=== PATIENT | female | born 1985 | race Caucasian/White ===

== ENCOUNTER 2021-04-26 23:29 | Observation (INO) | payer OTHER ==
[~2021-04-26] VITALS: Ht 170.2 cm; Wt 90.7 kg
[2021-04-27] MEDS ORDERED: PREN1TAB23 PO (00:11)
[2021-04-27] MEDS ORDERED: OMEP20CA14 PO (00:11)
== END 2021-04-27 01:12 | disposition home or self-care (01) ==
LOC: 8 EST LDRP 23:29
PROVIDERS: ADMIT Obstetrics & Gynecology; ATTEND Obstetrics & Gynecology
DX: O26.893 Other specified pregnancy related conditions, third trimester (principal); R10.11 Right upper quadrant pain; O09.523 Supervision of elderly multigravida, third trimester; Z3A.36 36 weeks gestation of pregnancy
CPT/HCPCS: 59025; 99281; G0378

== ENCOUNTER 2021-11-23 17:26 | Emergency (ER) | payer OTHER ==
[~2021-11-23] VITALS: Ht 170.2 cm; Wt 79.0 kg
[~2021-11-23 17:26] MED LIST: OMEP20CA14 PO; PREN1TAB23 PO
[2021-11-23] MEDS ORDERED: MAGNESIUM/ALUMINUM HYDROXIDE/SIMETHICONE 30ML UDC PO STA (18:17)
[2021-11-23] MEDS ORDERED: ONDANSETRON HCL 4MG/2ML INJ IV STA (18:17)
[2021-11-23] MEDS ORDERED: PANTOPRAZOLE SODIUM 40 MG/VIAL IV STA (18:17)
[2021-11-23] MEDS ORDERED: SODIUM CHLORIDE 0.9% 1,000 ML IV ONE (18:30)
[2021-11-23] MEDS ORDERED: KETOROLAC 15MG/ML VIAL IV ONE (19:00)
[2021-11-23 19:27] LABS: BASOPHILS % 0.2 % (0.0-2.0); EOSINOPHILS % 0.7 % (0.0-5.0); HEMATOCRIT. 42.3 % (36.0-48.0); HEMOGLOBIN. 14.3 g/dL (12.0-16.0); LYMPHOCYTES % 11.7 % (20.0-50.0); MEAN CORPUSCULAR HEMOGLOBIN 30.4 pg (28.0-32.0); MEAN CORPUSCULAR VOLUME 89.8 fL (81.0-99.0); MEAN PLATELET VOLUME 10.4 fl (7.4-10.4); MONOCYTES % 9.2 % (2.0-8.0); NEUTROPHILS % 78.2 % (40.0-76.0); PLATELET 210 x1000/uL (130-400); RED BLOOD CELL COUNT 4.71 mill/uL (4.2-5.4); RED CELL DISTRIBUTION WIDTH 13.7 % (11.6-14.6)
[2021-11-23 19:29] LABS: CHLORIDE 107 mEq/L (98-107)
[2021-11-23 19:36] LABS: ETHANOL BLOOD < 10 mg/dL
[2021-11-23 19:40] LABS: CLARITY URINE CLEAR (CLEAR); COLOR URINE YELLOW (YELLOW); KETONES URINE NEGATIVE (NEGATIVE); LEUKOCYTE ESTERASE URINE 1+ (NEGATIVE); NITRITE URINE NEGATIVE (NEGATIVE); OCCULT BLOOD URINE 3+ (NEGATIVE); PROTEIN URINE NEGATIVE (NEGATIVE); SPECIFIC GRAVITY URINE 1.014 (1.005-1.030); UROBILINOGEN URINE 0.2 E.U./dL (0.2-1.0)
[2021-11-23 19:57] LABS: *AMPHETAMINES SCREEN URINE NEGATIVE (NEGATIVE); *BARBITURATES SCREEN URINE NEGATIVE (NEGATIVE); *BENZODIAZEPINES SCREEN URINE NEGATIVE (NEGATIVE); *COCAINE SCREEN URINE NEGATIVE (NEGATIVE); CANNABINOID URINE SCREEN NEGATIVE (NEGATIVE); METHADONE URINE SCREEN NEGATIVE (NEGATIVE); OPIATES URINE SCREEN NEGATIVE (NEGATIVE); PHENCYCLIDINE URINE SCREEN NEGATIVE (NEGATIVE)
[2021-11-23 20:14] LABS: HCG SCREEN NEGATIVE
[2021-11-23 20:19] VITALS: BP 112/73
[2021-11-23] MEDS ORDERED: IBUP-2029 MT (20:20)
[2021-11-23] MEDS ORDERED: DICY10CA88 MT (20:20)
[2021-11-23] MEDS ORDERED: ONDA4TAB5 MT (20:20)
[2021-11-23] MEDS ORDERED: DICYCLOMINE HCL 10MG CAPSULE PO ONE (20:30)
== END 2021-11-23 21:07 | disposition home or self-care (01) ==
LOC: ER 17:26
DX: K52.9 Noninfective gastroenteritis and colitis, unspecified (principal); R11.2 Nausea with vomiting, unspecified; Z79.899 Other long term (current) drug therapy; Z88.0 Allergy status to penicillin
CPT/HCPCS: 36415; 76700; 80053; 80305; 80320; 81003; 81025; 83605; 83690; 84703; 85025; 96361; 96374; 96375; 99284; C9113; J1885; J2405; J7030; G0480

== ENCOUNTER 2022-11-03 15:22 | Emergency (ER) | payer OTHER ==
[~2022-11-03] VITALS: Ht 167.6 cm; Wt 91.0 kg
[~2022-11-03 15:22] MED LIST changes: +DICY10CA88 MT; +IBUP-2029 MT; +ONDA4TAB5 MT
[2022-11-03 19:39] LABS: BASOPHILS % 0.4 % (0.0-2.0); EOSINOPHILS % 0.6 % (0.0-5.0); HEMOGLOBIN. 14.9 g/dL (12.0-16.0); LYMPHOCYTES % 23.8 % (20.0-50.0); MEAN CORPUSCULAR HEMOGLOBIN 31.6 pg (28.0-32.0); MEAN CORPUSCULAR VOLUME 93.2 fL (81.0-99.0); MEAN PLATELET VOLUME 10.4 fl (7.4-10.4); MONOCYTES % 11.1 % (2.0-8.0); NEUTROPHILS % 64.1 % (40.0-76.0); PLATELET 189 x1000/uL (130-400); RED BLOOD CELL COUNT 4.72 mill/uL (4.2-5.4); RED CELL DISTRIBUTION WIDTH 13.6 % (11.6-14.6)
[2022-11-03 19:47] LABS: CHLORIDE 108 mEq/L (98-107)
[2022-11-04 00:48] VITALS: BP 108/74
== END 2022-11-04 00:50 | disposition home or self-care (01) ==
LOC: ER 15:22
DX: K52.9 Noninfective gastroenteritis and colitis, unspecified (principal); Z88.0 Allergy status to penicillin
CPT/HCPCS: 36415; 76705; 80053; 85025; 99284

== ENCOUNTER 2025-03-09 12:36 | Emergency (ER) | payer OTHER ==
[~2025-03-09] VITALS: Ht 170.2 cm; Wt 84.0 kg
[~2025-03-09 12:36] MED LIST changes: +DICY-18 MT; -DICY10CA88 MT
[2025-03-09 12:40] VITALS: O2SAT 98
[2025-03-09] MEDS: SODIUM CHLORIDE 0.9% 1,000 ML IV ONE (13:45)
[2025-03-09] MEDS: LORAZEPAM 1MG TABLET PO ONE (14:10)
[2025-03-09 14:47] LABS: BASOPHILS % 0.4 % (0.0-2.0); EOSINOPHILS % 1.1 % (0.0-5.0); HEMATOCRIT. 39.3 % (36.0-48.0); HEMOGLOBIN. 13.1 g/dL (12.0-16.0); LYMPHOCYTES % 24.8 % (20.0-50.0); MEAN PLATELET VOLUME 10.2 fl (7.4-10.4); MONOCYTES % 9.6 % (2.0-8.0); NEUTROPHILS % 64.1 % (40.0-76.0); PLATELET 207 x1000/uL (130-400); RED BLOOD CELL COUNT 4.27 mill/uL (4.2-5.4); RED CELL DISTRIBUTION WIDTH 13.6 % (11.6-14.6)
[2025-03-09 14:59] LABS: INR 1.0
[2025-03-09 15:08] LABS: CREATININE 0.7 mg/dL (0.6-1.0); TROPONIN I HIGH SENSITIVITY < 4 ng/L (3.0-34)
[2025-03-09 15:09] LABS: UREA NITROGEN BLOOD 12 mg/dL (9-23)
[2025-03-09 15:10] LABS: ASPARTATE AMINOTRANSFERASE 30 IU/L (<34)
[2025-03-09 15:11] LABS: BILIRUBIN DIRECT 0.1 mg/dL (<=3.0); BILIRUBIN TOTAL 0.5 mg/dL (0.1-1.0); PROTEIN TOTAL 6.8 g/dL (6.0-8.3)
[2025-03-09 15:30] LABS: HCG SCREEN NEGATIVE
[2025-03-09 17:15] LABS: TROPONIN I HIGH SENSITIVITY < 4 ng/L (3.0-34)
[2025-03-09 18:03] VITALS: TEMP 36.6
[2025-03-09 19:08] VITALS: BP 121/55; PULSE 69; RESP 16; O2SAT 99
== END 2025-03-09 19:13 | disposition home or self-care (01) ==
LOC: ER 12:36
DX: R55 Syncope and collapse (principal); F41.9 Anxiety disorder, unspecified; F19.90 Other psychoactive substance use, unspecified, uncomplicated; Z90.49 Acquired absence of other specified parts of digestive tract; Z88.0 Allergy status to penicillin
CPT/HCPCS: 99285; 96360; 71045; 96361; 80076; 80048; 84703; 85025; 85610; 84484; 36415; 93005; J7030